=== PATIENT | female | born 1950 | race Caucasian/White ===

== ENCOUNTER 2019-07-11 00:05 | Emergency (ER) | payer OTHER, MEDICARE ==
[~2019-07-11] VITALS: Ht 172.7 cm; Wt 95.3 kg
[2019-07-11 00:10] VITALS: BP 113/65
--- NOTE | 2019-07-11 00:10 | NUR ---
PT AMBULATED FROM [facility] TO BED #11
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
--- NOTE | 2019-07-11 02:05 | NUR ---
PT SEEN WITH EYES CLOSED. VISIBLE CHEST RISE AND FALL NOTED. WILL CONTINUE TO MONITOR.
[2019-07-11 02:16] VITALS: BP 118/81
== END 2019-07-11 03:23 | disposition home or self-care (01) ==
LOC: MED 00:05
DX: S80.211A Abrasion, right knee, initial encounter (principal); Z88.1 Allergy status to other antibiotic agents; V89.2XXA Person injured in unspecified motor-vehicle accident, traffic, initial encounter; Y93.89 Activity, other specified; Y92.89 Other specified places as the place of occurrence of the external cause; Y99.8 Other external cause status
CPT/HCPCS: 73562; 99283; Q0092